=== PATIENT | female | born 1940 | race Caucasian/White ===

== ENCOUNTER → 2016-09-03 | Outpatient (CLI) | payer MEDICARE, BC ==
[~2016-09-03] MED LIST: AZIT500T2 PO; BENZ100 PO; CARV3.125 PO; COMMODE BEDSIDE1 MI1; DILA100C PO; FURO1TAB62 PO; PANT20 PO; PHEN-414 PO; PHEN-523 PO; POTA-163 PO; PRAV80TA2 PO; XARE20TA PO
[2016-09-03 11:00] LABS: ALKALINE PHOSPHATASE 223 U/L (45-117); ALT (GPT) 18 U/L (10-53); ANION GAP 7 MEQ/L (5-15); AST (GOT) 15 U/L (15-37); BICARBONATE 32.8 MEQ/L (21.0-32.0); BLOOD UREA NITROGEN 17 MG/DL (7-18); CHLORIDE 99 MEQ/L (98-107); GLOMERULAR FILTRATION RATE 93 ML/MIN (>89); GLUCOSE,FASTING 79 MG/DL (74-99); HDL CHOLESTEROL 86.1 MG/DL (40.0-60.0); LDL CHOLESTEROL 72 MG/DL (0-99); SODIUM (NA) 139 MEQ/L (136-145); TOTAL BILIRUBIN ADULT 0.4 MG/DL (0.2-1.0)
[2016-09-03 11:01] LABS: CREATINE KINASE 51 U/L (26-192)
== END ==
LOC: CLAB 09:50
PROVIDERS: ATTEND Internal Medicine Interventional Cardiology
DX: R06.02 Shortness of breath (principal); E78.5 Hyperlipidemia, unspecified; Z79.899 Other long term (current) drug therapy
CPT/HCPCS: 36415; 80053; 80061; 82248; 82550

== ENCOUNTER 2016-10-12 10:09 | Day surgery (SDC) | payer MEDICARE, BC ==
[~2016-10-12] VITALS: Ht 167.6 cm; Wt 53.8 kg
[~2016-10-12 10:09] MED LIST changes: -PHEN-523 PO
[2016-10-12 10:45] VITALS: BP 111/58; PULSE 62; RESP 18; TEMP 98.1; O2SAT 100
[2016-10-12] MEDS ORDERED: NS 1000P @30 MLS/HR (KVO) IV SCH (11:00)
[2016-10-12 11:09] LABS: AUTOMATED NEUTROPHIL # 3.1 TH/MM3 (1.8-7.7); BASOPHIL % 0.5 % (0.0-2.0); EOSINOPHIL # 0.1 TH/MM3 (0-0.4); EOSINOPHIL % 1.6 % (0.0-4.0); HEMATOCRIT 38.7 % (35.0-46.0); HEMO FLAGS DIFF FINAL; LYMPH % 21.3 % (9.0-44.0); MEAN CELL VOLUME 88.7 FL (80.0-100.0); MEAN CORPUSCULAR HEMOGLOBIN 30.9 PG (27.0-34.0); MEAN CORPUSCULAR HGB CONC 34.9 % (32.0-36.0); MONO % 7.7 % (0.0-8.0); NEUT % 68.9 % (16.0-70.0); PLATELET COUNT 164 TH/MM3 (150-450); RED BLOOD COUNT 4.37 MIL/MM3 (4.00-5.30); WHITE BLOOD COUNT 4.5 TH/MM3 (4.0-11.0)
[2016-10-12 11:17] LABS: APTT (PATIENT) 27.6 SEC (24.3-30.1); PROTHROMBIN TIME - PATIENT 11.4 SEC (9.8-11.6)
[2016-10-12 11:27] LABS: BICARBONATE 31.4 MEQ/L (21.0-32.0)
[2016-10-12 11:28] LABS: POTASSIUM 4.5 MEQ/L (3.5-5.1)
[2016-10-12] MEDS ORDERED: HEPARIN-NS/PF INJ 500 ML ONE (12:31)
[2016-10-12] MEDS ORDERED: SODIUM CHLORIDE 0.9% FLUSH 5 ML FLUSH IVF PRN (13:15)
[2016-10-12] MEDS ORDERED: MISC INFORMATION XX ONE (13:15)
[2016-10-12] MEDS ORDERED: IODIXANOL 320 MG/ML 50 ML VIAL (for Cath Lab) IV ONE (14:23)
[2016-10-12] MEDS ORDERED: SODIUM CHLORIDE 0.9% FLUSH 5 ML FLUSH IVF SCH (21:00)
--- NOTE | 2016-10-13 11:19 | EKG ---
Date Performed: 10/12/2016 Time Performed: 10:55:16 PTAGE: 76 years EKG: Sinus rhythm Low limb lead voltage Compared to previous tracing, ST changes have resolved. Borderline ECG PREVIOUS TRACING : 07/24/2016 23.04 DOCTOR: Simone Guerra Interpretating Date/Time 10/13/2016 11:17:54
--- NOTE | 2016-10-14 12:14 | MA ---
cc: LICHA BALL M.D. DATE 10/12/2016 PROCEDURE: 1. Left heart catheterization. 2. Left ventriculography. 3. Coronary arteriography. INDICATIONS: Coronary artery disease, moderate-sized perfusion defect in the inferoapical wall on nuclear stress test, status post PCI in the proximal-mid LAD. PROCEDURE DESCRIPTION: The patient was brought to the Cardiac Catheterization Laboratory, prepped and draped in the usual sterile fashion. 10 cc of 1% lidocaine was used to locally anesthetize the right common femoral artery. A 4-Algerian sheath was successfully placed in the right common femoral artery. 4-Algerian JR4 and JL4 catheters were used to perform left and right coronary angiography and left ventriculography. FINDINGS: LEFT VENTRICULOGRAPHY: LV pressure is 160/15-16. Ejection fraction is 60%. CORONARY ANGIOGRAPHY: The right coronary artery is non-dominant with no significant disease angiographically. The left main coronary artery has mild disease in the proximal segment of less than 20% angiographically. The left circumflex vessel is a dominant vessel, has mild diffuse disease in the proximal-mid AV groove up to 20% angiographically. Two small distal posterolateral arteries have no significant obstructive disease. The left posterior descending artery has no significant obstructive disease. The LAD is transapical. Stent in the proximal-mid segment is widely patent. There is mild to moderate diffuse in-stent stenosis up to 30-40% angiographically. CONCLUSION: 1. Angiographically mild to moderate diffuse in-stent stenosis of the proximal-mid LAD stent up to 30-40% angiographically. 2. Otherwise mild two-vessel coronary artery disease in left dominant system, as detailed above. 3. Normal LV systolic function, ejection fraction of 60%. RECOMMENDATIONS: Recommend medical management of coronary artery disease, cardiac risk factor modification. NOTE: The patient is asymptomatic. NOTE: If the patient does develop symptoms, could consider FFR of the proximal-mid LAD stent and PCI if the FFR is less than ____. MD ROBIN Orantes/ELISE /1:09 PM /11:59 AM
[2016-10-16] MEDS ORDERED: PHEN-523 PO (17:38)
== END 2016-10-12 15:18 | disposition home or self-care (01) ==
LOC: HDIC 10:09 → HDOC 10:09
PROVIDERS: ATTEND Internal Medicine Interventional Cardiology
DX: I25.10 Atherosclerotic heart disease of native coronary artery without angina pectoris (principal); I34.0 Nonrheumatic mitral (valve) insufficiency; I42.9 Cardiomyopathy, unspecified; I48.0 Paroxysmal atrial fibrillation; Z98.61 Coronary angioplasty status
CPT/HCPCS: 80048; 85025; 85610; 85730; 93005; 93458; C1769; C1893; J1644; Q9967

== ENCOUNTER → 2017-03-09 | Outpatient (CLI) | payer MEDICARE, BC ==
[~2017-03-09] MED LIST changes: -AZIT500T2 PO; -BENZ100 PO; -COMMODE BEDSIDE1 MI1; -PANT20 PO; +PHEN-523 PO; -XARE20TA PO
[2017-03-09 12:22] LABS: BICARBONATE 31.6 MEQ/L (21.0-32.0); POTASSIUM 3.7 MEQ/L (3.5-5.1)
== END ==
LOC: CLAB 11:31
PROVIDERS: ATTEND Internal Medicine Interventional Cardiology
DX: R78.89 Finding of other specified substances, not normally found in blood (principal)
CPT/HCPCS: 36415; 80048

== ENCOUNTER → 2017-04-14 | Outpatient (CLI) | payer MEDICARE, BC ==
[~2017-04-14] MED LIST changes: +PHEN100C PO
[2017-04-14 10:31] LABS: ALT (GPT) 26 U/L (10-53); ANION GAP 6 MEQ/L (5-15); AST (GOT) 30 U/L (15-37); BICARBONATE 30.6 MEQ/L (21.0-32.0); BLOOD UREA NITROGEN 22 MG/DL (7-18); CHLORIDE 102 MEQ/L (98-107); GLOMERULAR FILTRATION RATE 68 ML/MIN (>89); GLUCOSE,FASTING 78 MG/DL (74-99); SODIUM (NA) 139 MEQ/L (136-145)
[2017-04-14 10:34] LABS: ALKALINE PHOSPHATASE 147 U/L (45-117); HDL CHOLESTEROL 81.5 MG/DL (40.0-60.0); LDL CHOLESTEROL 62 MG/DL (0-99); TOTAL BILIRUBIN ADULT 0.3 MG/DL (0.2-1.0)
[2017-04-14 10:35] LABS: CREATINE KINASE 52 U/L (26-192)
== END ==
LOC: CLAB 09:11
PROVIDERS: ATTEND Internal Medicine Interventional Cardiology
DX: I25.10 Atherosclerotic heart disease of native coronary artery without angina pectoris (principal); E78.5 Hyperlipidemia, unspecified; I48.0 Paroxysmal atrial fibrillation; I21.4 Non-ST elevation (NSTEMI) myocardial infarction; Z79.899 Other long term (current) drug therapy
CPT/HCPCS: 36415; 80053; 80061; 82248; 82550

== ENCOUNTER → 2017-11-15 | Outpatient (CLI) | payer MEDICARE, BC ==
[~2017-11-15] MED LIST changes: -DILA100C PO; +RAMI2.5C PO; +WARF-58 PO
[2017-11-15 10:48] LABS: ALBUMIN 4.2 GM/DL (3.4-5.0); AST (GOT) 37 U/L (15-37); BICARBONATE 31.3 MEQ/L (21.0-32.0); BLOOD UREA NITROGEN 22 MG/DL (7-18); CALCIUM 9.3 MG/DL (8.5-10.1); CHLORIDE 99 MEQ/L (98-107); CREATININE 0.96 MG/DL (0.50-1.00); GLOMERULAR FILTRATION RATE 56 ML/MIN (>89); GLUCOSE,FASTING 80 MG/DL (74-99); SODIUM (NA) 138 MEQ/L (136-145)
[2017-11-15 10:49] LABS: CHOLESTEROL 170 MG/DL (120-200); TRIGLYCERIDES 51 MG/DL (42-150)
[2017-11-15 10:52] LABS: ALKALINE PHOSPHATASE 142 U/L (45-117); ALT (GPT) 36 U/L (10-53); CHOLESTEROL/ HDL RATIO 2.07 RATIO; HDL CHOLESTEROL 81.8 MG/DL (40.0-60.0); LDL CHOLESTEROL 78 MG/DL (0-99); TOTAL BILIRUBIN ADULT 0.5 MG/DL (0.2-1.0); TOTAL PROTEIN 7.3 GM/DL (6.4-8.2)
== END ==
LOC: CLAB 09:54
PROVIDERS: ATTEND Internal Medicine Interventional Cardiology
DX: I25.10 Atherosclerotic heart disease of native coronary artery without angina pectoris (principal); E78.5 Hyperlipidemia, unspecified; Z79.899 Other long term (current) drug therapy
CPT/HCPCS: 36415; 80053; 80061; 82550